=== PATIENT | male | born 2000 | race Caucasian/White ===

== ENCOUNTER 2019-07-27 22:15 | Emergency (ER) | payer OTHER ==
[~2019-07-27] VITALS: Ht 170.2 cm; Wt 72.6 kg
[2019-07-27 22:15] VITALS: BP 133/82
--- NOTE | 2019-07-27 22:24 | NUR ---
PT TAKEN TO BED 3 VIA [facility] AT BEDSIDE
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
--- NOTE | 2019-07-27 23:22 | NUR ---
DR WONG AT BEDSIDE EXAMINING PT.
[2019-07-28] VITALS: BP 133/82
--- NOTE | 2019-07-28 | NUR ---
PT DISCHARGED WITH MEDICAL CLEARANCE BY DR WONG. PT AMBULATORY WITH STEADY GAIT IN CUSTODY OF [place] . S UPON DISCHARGE. PAPERWORK GIVEN TO OFFICER.
== END 2019-07-28 ==
LOC: MED 22:15
DX: F12.90 Cannabis use, unspecified, uncomplicated (principal); Z02.89 Encounter for other administrative examinations; V43.52XA Car driver injured in collision with other type car in traffic accident, initial encounter; Y93.89 Activity, other specified; Y92.89 Other specified places as the place of occurrence of the external cause; Y99.8 Other external cause status
CPT/HCPCS: 90471; 90715; 99283